=== PATIENT | female | born 1945 | race Caucasian/White ===

== ENCOUNTER → 2016-11-22 | Outpatient (CLI) | payer MEDICARE | LOC: KOH-I 11:30 | DX: E04.0 Nontoxic diffuse goiter (principal); M54.5 Low back pain; M47.896 Other spondylosis, lumbar region; E07.9 Disorder of thyroid, unspecified | CPT/HCPCS: 72110; 76536 ==

== ENCOUNTER → 2022-02-28 | Outpatient (CLI) | payer MEDICARE ==
[~2022-02-28] MED LIST: FLEXERIL 10 MG10 MG PO; PREDNISONE 50 M50 MG PO; Voltaren Gel 1 % TOP
== END ==
LOC: KOH-I 10:28
DX: S89.91XA Unspecified injury of right lower leg, initial encounter (principal); M17.11 Unilateral primary osteoarthritis, right knee
CPT/HCPCS: 73562